=== PATIENT | female | born 1945 | race Caucasian/White ===

== ENCOUNTER 2017-12-15 10:10 | Inpatient (IN) | payer MEDICARE ==
[~2017-12-15] VITALS: Ht 154.9 cm; Wt 45.4 kg
[~2017-12-15 10:10] MED LIST: ASPIR 8181 MG PO; CALCIUM + VITA1 EACH PO; CALCIUM 600 +1 EAC4 PO; CLONAZEPAM1 MG PO; COMBIVENT RESPIM4 GM IH; DOXEPIN HCL25 MG PO; FLAGYL250 MG PO; GENERLAC10 GM/15 M PO; KEPPRA500 MG PO; LISINOPRIL10 MG PO; MAGNESIUM OXID400 MG PO; MONTELUKAST SOD10 MG PO; MULTI-VITAMIN1 EACH PO; VITAMIN C100 MG PO; VITAMIN E400 UNI2 PO; ZEBETA10 MG PO
--- NOTE | 2017-12-15 12:02 | Diagnostic Imaging Report ---
PROCEDURE: A single AP view of the chest. COMPARISON: Patients [facility], DX, CHEST SINGLE (PORTABLE), 03/12/2017, 8:49. Patients [facility], CT, CT ABDOMEN/PELVIS WO, 03/12/2017, 9:56. INDICATIONS: DIZZY, WEAKNESS FINDINGS: Lines/tubes: None. Lungs: Lungs are well inflated. Interval increase in size of right infrahilar 5.3 x 5.0 cm mass (previously measured 3.7 x 4.1 cm). There is increased prominence of the interstitial markings extending from bilateral florentino. No consolidation. Pleura: There is no pleural effusion or pneumothorax. Heart and mediastinum: Cardiac silhouette is unremarkable. Prominence of bilateral pulmonary arteries. Bones: No acute bony abnormality. Stable deformity of the left ninth rib, likely reflecting old healed fracture IMPRESSION: 1. interval increase in size in previously visualized right infrahilar mass, suspicious for bronchogenic neoplasm and/or adenopathy. Contrast enhanced chest CT is recommended for further evaluation. 2. Increased prominence of interstitial markings extending from bilateral florentino may reflect mild interstitial edema, however, lymphangitic spread of neoplasm is also a consideration. Van Valencia M.D. Dictated by: Van Valencia M.D. on 12/15/2017 at 12:02 Electronically approved by: Van Valencia M.D. on 12/15/2017 at 12:02
--- NOTE | 2017-12-15 13:07 | Diagnostic Imaging Report ---
Exam: Head CT without contrast History: Dizziness, multiple falls Comparison studies: None Technique: Axial images were obtained from the skull base to the vertex. Coronal and sagittal images reconstructed from the axial data. Intravenous contrast: None Findings: Scalp: No abnormalities. Bones: No fractures, blastic or lytic lesions. Brain sulci: Mildly prominent. Ventricles: Within normal limits for size. No hydrocephalus. Extra-axial spaces: No masses, no fluid collection. Parenchyma: No mass, acute hemorrhage or acute cortical vascular insults. A few subtle hypodensities in the supratentorial white matter are nonspecific but most compatible with chronic small vessel ischemic changes. There is a chronic cortical based insult with encephalomalacia in the left precentral gyrus just medial to the hand knob. Sellar/suprasellar region: No abnormalities. Craniocervical junction: Patent foramen magnum. No Chiari one malformation. Included paranasal sinuses: Mild nonspecific inflammatory mucosal thickening with frothy secretions in the bilateral maxillary sinuses. The left inferior frontal sinus is partially opacified. Incidental findings: Atherosclerotic calcifications in the carotid siphons. Bilateral lens replacements related to previous cataract surgery. IMPRESSION: No acute intracranial abnormalities. Chronic findings: 1. Mild generalized volume loss. 2. Small chronic left precentral cortical insult. 3. Mild supratentorial chronic microvascular ischemic changes. Signed by: Dr. Eric Ayala M.D. on 12/15/2017 12:00 PM
[2017-12-15 13:14] LABS: BASOPHILS % 0.2 % (0.0-1.0); BILIRUBIN,URINE NEGATIVE (NEGATIVE); HEMATOCRIT 32.8 % (34.2-44.1); HEMOGLOBIN 10.9 g/dL (12.0-16.0); KETONES,URINE NEGATIVE (NEGATIVE); LEUKOCYTE ESTERASE ,URINE NEGATIVE (NEGATIVE); LYMPHOCYTES # (AUTO) 1.5 (1.0-3.2); LYMPHOCYTES % 11.6 % (18.0-39.1); MEAN CORPUSCULAR HEMOGLOBIN 33.2 pg (28-32); MEAN CORPUSCULAR HGB CONC 33.2 g/dL (31-35); MONOCYTES % 7.9 % (4.4-11.3); NEUTROPHILS # (AUTO) 10.1 (2.1-6.9); NEUTROPHILS % 79.7 % (38.7-80.0); NITRITE,URINE NEGATIVE (NEGATIVE); PLATELET COUNT 170 x10e3/uL (140-360); RED BLOOD COUNT 3.28 x10e6/uL (3.6-5.1); RED CELL DISTRIBUTION WIDTH 11.7 % (11.7-14.4); URINE UROBILINOGEN 0.2 mg/dL (0.2 - 1)
[2017-12-15 13:17] LABS: CLARITY,URINE CLEAR (CLEAR); COLOR,URINE YELLOW (YELLOW); PROTEIN,URINE DIPSTICK 1+ (NEGATIVE)
[2017-12-15 13:22] LABS: BACTERIA,URINE RARE /HPF; EPITHELIAL CELLS,URINE FEW /LPF; WBC,URINE (MAN) 0-5 /HPF (0-5)
[2017-12-15 13:24] LABS: INR 1.2; PROTHROMBIN TIME 14.3 seconds (11.9-14.5)
[2017-12-15 13:25] LABS: PARTIAL THROMBOPLASTIN TIME 34.3 seconds (23.8-35.5)
[2017-12-15 13:33] LABS: ALBUMIN 2.7 g/dL (3.5-5.0); ALBUMIN/GLOBULIN RATIO 0.8 (0.8-2.0); ANION GAP 13.7 mmol/L (8-16); CALCIUM 9.1 mg/dL (8.4-10.2); CREATININE, SERUM 1.19 mg/dL (0.57-1.11); MAGNESIUM 1.3 MG/DL (1.3-2.1); POTASSIUM 3.7 mmol/L (3.5-5.1)
[2017-12-15 13:39] LABS: CREATINE KINASE MB 1.3 ng/mL (0-5.0)
[2017-12-15] MEDS ORDERED: ONDANSETRON HCL INJ 2 MG/ML VIAL IV STA (15:26)
[2017-12-15] MEDS ORDERED: SODIUM CHLORIDE 0.9% 1000ML 1,000 ML IV SCH (15:30)
[2017-12-15] MEDS: SODIUM CHLORIDE 0.9% 1000ML 1,000 ML IV SCH (16:49)
[2017-12-15] MEDS ORDERED: MECLIZINE HCL 12.5 MG TAB PO PRN (17:15)
[2017-12-15] MEDS ORDERED: ONDANSETRON HCL INJ 2 MG/ML VIAL IV PRN (17:15)
[2017-12-15] MEDS ORDERED: HYDROCODONE/APAP 5MG-325MG TAB PO ONE (17:30)
--- OUTSIDE RECORDS SUMMARY | 2017-12-15 17:37 | XMS REPORT ---
Author Author [facility] Address Unknown Phone Unavailable Care Team Providers Care Welfare Eligibility Worker Name Role Phone STU HOWE Unavailable Unavailable Problems This patient has no known problems. Allergies, Adverse Reactions, Alerts This patient has no known allergies or adverse reactions. Medications This patient has no known medications. Results Test Description Test Time Test Comments Text Results Atomic Results Result Comments CHEST SINGLE (PORTABLE) [place] [address] Patient Name: BESSIE WILSON MR #: [id number] : 1945 Age/Sex: 72/F Req #: [id number] Adm Physician: Ordered by: KHURRAM ALCAZAR [employer] Report #: [id number] Location: ER Room/Bed: Procedure: [id number] DX/CHEST SINGLE (PORTABLE) Exam Date: 12/15/17 Exam Time: 1130 REPORT STATUS: Signed PROCEDURE: A single AP view of the chest. COMPARISON: [facility], DX, CHEST SINGLE (PORTABLE), 03/12/2017, 8:49. Patients [facility], CT, CT ABDOMEN/PELVIS WO, 03/12/2017, 9:56. INDICATIONS: DIZZY, WEAKNESS FINDINGS: Lines/tubes: None. Lungs: Lungs are well inflated. Interval increase in size of right infrahilar 5.3 x 5.0 cm mass (previously measured 3.7 x 4.1 cm). There is increased prominence of the interstitial markings extending from bilateral florentino. No consolidation. Pleura: There is no pleural effusion or pneumothorax. Heart and mediastinum: Cardiac silhouette is unremarkable. Prominence of bilateral pulmonary arteries. Bones: No acute bony abnormality. Stable deformity of the left ninth rib, likely reflecting old healed fracture IMPRESSION: 1. interval increase in size in previously visualized right infrahilar mass, suspicious for bronchogenic neoplasm and/or adenopathy. Contrast enhanced chest CT is recommended for further evaluation. 2. Increased prominence of interstitial markings extending from bilateral florentino may reflect mild interstitial edema, however, lymphangitic spread of neoplasm is also a consideration. Abhi Valencia M.D. Dictated by: Abhi Valencia M.D. on 12/15/2017 at 12:02 Electronically approved by: Abhi Valencia M.D. on 12/15/2017 at 12:02 Dictated By: ABHI VALENCIA MD 1202 Transcribed By: WOLFGANG on 12/15/17 1202 COPY TO: KHURRAM ALCAZAR NP CT BRAIN WO [place] [address] Patient Name: BESSIE WILSON MR #: [id number] : 1945 Age/Sex: 72/F Req # : [id number] Adm Physician: Ordered by: KHURRAM ALCAZAR NP Report #: [id number] Location: ER Room/Bed: Procedure: [id number] CT/CT BRAIN WO Exam Date: 12/15/17 Exam Time: 1125 REPORT STATUS: Signed Exam: Head CT without contrast History: Dizziness, multiple falls Comparison studies: None Technique: Axial images were obtained from the skull base to the vertex. Coronal and sagittal images reconstructed from the axial data. Intravenous contrast: None Findings: Scalp: No abnormalities. Bones: No fractures, blastic or lytic lesions. Brain sulci: Mildly prominent. Ventricles: Within normal limits for size. No hydrocephalus. Extra-axial spaces: No masses, no fluid collection. Parenchyma: No mass, acute hemorrhage or acute cortical vascular insults. A few subtle hypodensities in the supratentorial white matter are nonspecific but most compatible with chronic small vessel ischemic changes. There is a chronic cortical based insult with encephalomalacia in the left precentral gyrus just medial to the hand knob. Sellar/ suprasellar region: No abnormalities. Craniocervical junction: Patent foramen magnum. No Chiari one malformation. Included paranasal sinuses: Mild nonspecific inflammatory mucosal thickening with frothy secretions in the bilateral maxillary sinuses. The left inferior frontal sinus is partially opacified. Incidental findings: Atherosclerotic calcifications in the carotid siphons. Bilateral lens replacements related to previous cataract surgery. IMPRESSION: No acute intracranial abnormalities. Chronic findings: 1. Mild generalized volume loss. 2. Small chronic left precentral cortical insult. 3. Mild supratentorial chronic microvascular ischemic changes. Signed by: Dr. Randa Ayala M.D. on 12/15/2017 12:00 PM Dictated By: RANDA AYALA MD 1200 Transcribed By: CLARIBEL on 12/15/17 1200 COPY TO: KHURRAM ALCAZAR NP
[2017-12-15 20:22] VITALS: BP 105/59
[2017-12-15 21:03] VITALS: BP 105/59
[2017-12-15 21:45] LABS: ABG PCO2 59 mmHg (41-51); ABG PH 7.38 (7.31-7.41); ABG PO2 60 mmHg (80-105)
[2017-12-15 21:46] LABS: ABG HCO3 35 mmol/L (23-28)
[2017-12-15 23:57] VITALS: BP 115/58
[2017-12-16] VITALS (22 sets, daily range): BP systolic 112–144; BP diastolic 58–134
[2017-12-16] MEDS: NICOTINE 14 MG/EA PATCH TOP SCH ×2 (01:02→08:31)
[2017-12-16] MEDS: SODIUM CHLORIDE 0.9% 1000ML 1,000 ML IV SCH ×2 (06:05→19:25)
[2017-12-16 06:52] LABS: BASOPHILS % 0.2 % (0.0-1.0); EOSINOPHILS % 0.1 % (0.0-6.0); HEMATOCRIT 33.6 % (34.2-44.1); HEMOGLOBIN 10.5 g/dL (12.0-16.0); LYMPHOCYTES # (AUTO) 1.4 (1.0-3.2); LYMPHOCYTES % 8.5 % (18.0-39.1); MEAN CORPUSCULAR HEMOGLOBIN 32.3 pg (28-32); MEAN CORPUSCULAR HGB CONC 31.3 g/dL (31-35); MEAN CORPUSCULAR VOLUME 103.4 fL (81-99); MONOCYTES # (AUTO) 1.4 (0.2-0.8); MONOCYTES % 8.7 % (4.4-11.3); NEUTROPHILS # (AUTO) 13.4 (2.1-6.9); NEUTROPHILS % 81.7 % (38.7-80.0); PLATELET COUNT 172 x10e3/uL (140-360); RED BLOOD COUNT 3.25 x10e6/uL (3.6-5.1); RED CELL DISTRIBUTION WIDTH 11.8 % (11.7-14.4)
[2017-12-16 07:15] LABS: ANION GAP 13.3 mmol/L (8-16); BLOOD UREA NITROGEN 12 mg/dL (7-26); BUN/CREATININE RATIO 16 (6-25); CALCIUM 9.1 mg/dL (8.4-10.2); CARBON DIOXIDE 33 mmol/L (22-29); CHLORIDE 94 mmol/L (98-107); CREATININE, SERUM 0.73 mg/dL (0.57-1.11); EST GLOMERULAR FILTRATION RATE > 60 ML/MIN (60-); GLUCOSE 89 mg/dL (74-118); POTASSIUM 4.3 mmol/L (3.5-5.1); SODIUM 136 mmol/L (136-145)
[2017-12-16] MEDS: LEVETIRACETAM 500 MG TAB PO SCH (08:30)
[2017-12-16] MEDS: CLONAZEPAM 1 MG TAB PO SCH ×2 (08:30→17:58)
[2017-12-16] MEDS: ASPIRIN 81 MG CHEW TAB PO SCH (08:30)
[2017-12-16] MEDS: MAGNESIUM OXIDE 400 MG TAB PO SCH (08:31)
[2017-12-16] MEDS: MULTIVITAMINS/MINERALS TAB PO SCH (08:31)
[2017-12-16] MEDS: LORAZEPAM INJ 2 MG/ML VIAL IV PRN (11:56)
[2017-12-16 13:22] LABS: ABG HCO3 35 mmol/L (23-28); ABG PCO2 52 mmHg (41-51); ABG PH 7.44 (7.31-7.41); ABG PO2 65 mmHg (80-105)
[2017-12-16] MEDS ORDERED: DIPHENHYDRAMINE HCL INJ 50 MG/ML VIAL IV STA (13:26)
[2017-12-16] MEDS: BISOPROLOL FUMARATE 10 MG TAB PO SCH (13:46)
[2017-12-16] MEDS ORDERED: SODIUM CHLORIDE 0.9% 50ML 50 ML ONE (15:01)
[2017-12-16] MEDS ORDERED: IOPAMIDOL 370 MG/ML 200 ML INFUS..BTL INJ ONE (15:02)
--- NOTE | 2017-12-16 15:46 | Diagnostic Imaging Report ---
PROCEDURE: CT scan of the chest WITH intravenous contrast, using standard protocol. TECHNIQUE: The chest was scanned utilizing a multidetector helical scanner from the lung apex through the level of the adrenal glands after the IV administration of 100 cc of Isovue 370. Coronal and sagittal multiplanar reformations were obtained. Total DLP: 363.82 mGy-cm COMPARISON: Chest x-ray 12/15/2017. CT abdomen and pelvis 03/12/17 INDICATIONS: LUNG MASS, AMS, CONFUSSION FINDINGS: Lines/tubes: None. Lungs and Airways: Severe centrilobular emphysematous changes. Diffuse interlobular septal thickening, consistent with mild fluid overload. Focal consolidations in the anterior medial right middle lobe and lingula. Consolidation in the dependent portions of the left lower lobe and medial aspect of the right lower lobe. Mild ill-defined groundglass opacities in the right upper lobe. Collapsed right middle lobe measuring 4.0 x 5.4 cm, which corresponds with findings on chest x-ray. (Series 3 image 71) 3.8 mm nodule in the lingula (series 4 image 65). Calcified granuloma in the right lower lobe. Diffuse bronchial wall thickening especially in both lower lobes. Pleura: The pleural spaces are clear. Heart and mediastinum: The thyroid gland is normal. No significant axillary lymphadenopathy is seen. 0.7 cm short axis prevascular lymph node (series 3 image 40). 1.1 cm precarinal lymph node (series 3 image 51). 1.1 cm right hilar lymph node (series 3 image 57) Small left hilar lymph nodes. The heart and pericardium are within normal limits. Main pulmonary artery measures 3.4 cm in the ascending aorta measures 3.3 cm. Right pulmonary artery measures 3.2 cm and the left pulmonary artery measures 3.0 cm. Straightening of the interventricular septum with mild deviation towards the left. Soft tissues: Normal. Abdomen: Calcifications in the 1.6 cm focal fatty infiltration of the liver adjacent to falciform ligament. Main pancreatic duct is dilated and measures 0.5 cm with a pancreatic divisum variant exiting both the minor and major papilla. 0.6 cm cyst in the lower pole of left kidney. Severe atherosclerotic calcifications in the aorta. Diffuse gastric wall thickening especially the antrum. Mild anterior compression deformity of L1 vertebral body. IMPRESSION: 1. Emphysema with mild edema. 2. Multifocal pneumonia/aspiration. 3. Previous mass seen corresponds with a collapsed right middle lobe. 4. Multiple small mediastinal lymph node, likely related to pneumonia. 5. Diffuse gastric wall thickening especially involving the antrum, correlate for gastritis. Recommend endoscopy for further evaluation. 6. Prominent pancreatic duct, which may be related to pancreatic divisum variant. 7. Main pulmonary artery is enlarged, which can be seen in elevated right pressure. Dictated by: Harvey Nunze M.D. on 12/16/2017 at 15:47 Electronically approved by: Harvey Nunez M.D. on 12/16/2017 at 15:47
[2017-12-16] MEDS ORDERED: ZIPRASIDONE 20 MG VIAL IM PRN (16:00)
[2017-12-16] MEDS: LEVALBUTEROL HCL SOLN NEBU 1.25 MG/3 ML NEB INH SCH ×2 (16:30→19:00)
[2017-12-16] MEDS ORDERED: DEXMEDETOMIDINE HCL 200 MCG in SODIUM CHLORIDE 0.9% 50ML 48 ML IV PRN (16:30)
--- NOTE | 2017-12-16 17:04 | Consultation ---
DATE OF CONSULTATION: PULMONARY CONSULTATION REASON FOR CONSULTATION: Shortness of breath and lung mass. HPI: Ms. Conte is a 72-year-old female, a [id number] smoker, who presented with worsening shortness of breath, cough and intentional weight loss. She is currently confused. When I was taking her history, she was awake and alert. She is hypoxic as well. She denies any nausea, vomiting, or diarrhea. Her CT showed evidence of emphysema and possible pneumonia and lymph nodes. It is not showing any clear-cut mass. REVIEW OF SYSTEMS GENERAL: Denies any fever or chills. HEAD: Denies any head trauma. ENT: Denies any earache, nosebleed, throat pain. CVS: Denies any chest pain. RESPIRATORY: Shortness of breath. OTHER: The rest of the review systems are negative except as in HPI. PAST MEDICAL HISTORY: Seizure disorder, anxiety, COPD. PAST SURGICAL HISTORY: Unknown. FAMILY AND SOCIAL HISTORY: Smoker for 55+ years, 1 pack per day. Denies any alcohol use. PHYSICAL EXAMINATION VITAL SIGNS: Temperature 96.6. Pulse 100. Blood pressure 139/63. Respiratory rate is 20 to 24 per minute, 95% on Venturi mask. HEENT: Head is atraumatic and normocephalic. Pupils are reactive. NECK: Supple. CHEST: Markedly reduced air entry. HEART: S1, S2 audible. ABDOMEN: Soft, nontender and nondistended. EXTREMITIES: No clubbing, cyanosis or edema. NEUROLOGIC: Awake and alert. LABS: ABG showing pH of 7.44, pCO2 52, pO2 65, O2 sat 93%. Chemistry: Sodium 132, potassium 4.3, chloride 94, BUN 12, creatinine 0.7. White count 16,000, hemoglobin 10.5, platelets 172. CT of the chest: I reviewed the images. Showing right middle lobe looks collapsed, atelectasis and emphysema. There are small mediastinal lymph nodes. The findings are consistent with pneumonia. ASSESSMENT AND PLAN 1. Pneumonia with right middle lobe atelectasis. 2. Altered mental status and psychosis. 3. Hypertension. 4. Chronic obstructive pulmonary disease. PLAN 1. I will start the patient on IV antibiotics. 2. IV Solu-Medrol. 3. Continue the patient on Keppra. 4. Observe in ICU. Start the patient on IV Precedex. 5. Possibly anxiety. Detailed discussion was done with Dr. Arias and also discussed with family at bedside. Job#: [id number]
[2017-12-16] MEDS: METHYLPREDNISOLONE SOD SUCC 40 MG/ML VIAL IV SCH ×2 (17:58→22:30)
[2017-12-16] MEDS: PIPER-TAZ 3.375 GM 50 ML IV SCH ×2 (17:58→22:30)
[2017-12-16] MEDS: BUDESONIDE 0.5MG/2 ML NEB INH SCH (19:00)
[2017-12-16] MEDS: DEXMEDETOMIDINE HCL 200 MCG in SODIUM CHLORIDE 0.9% 50ML 48 ML IV PRN (21:40)
[2017-12-16] MEDS: DOXEPIN HCL 25 MG CAP PO SCH (22:30)
[2017-12-16] MEDS: MONTELUKAST SODIUM 10 MG TAB PO SCH (22:30)
[2017-12-17] VITALS (91 sets, daily range): BP systolic 84–167; BP diastolic 34–126
[2017-12-17] MEDS: LORAZEPAM INJ 2 MG/ML VIAL IV PRN (00:06)
[2017-12-17] MEDS: LEVALBUTEROL HCL SOLN NEBU 1.25 MG/3 ML NEB INH SCH ×4 (01:00→20:15)
[2017-12-17] MEDS ORDERED: LORAZEPAM INJ 2 MG/ML VIAL IV PRN (03:15)
[2017-12-17] MEDS: METHYLPREDNISOLONE SOD SUCC 40 MG/ML VIAL IV SCH ×3 (06:23→21:41)
[2017-12-17] MEDS: PIPER-TAZ 3.375 GM 50 ML IV SCH ×3 (06:23→21:41)
[2017-12-17 06:57] LABS: BASOPHILS % 0.1 % (0.0-1.0); HEMOGLOBIN 9.8 g/dL (12.0-16.0); LYMPHOCYTES # (AUTO) 0.6 (1.0-3.2); LYMPHOCYTES % 7.1 % (18.0-39.1); MEAN CORPUSCULAR HEMOGLOBIN 32.6 pg (28-32); MEAN CORPUSCULAR HGB CONC 31.6 g/dL (31-35); MONOCYTES # (AUTO) 0.1 (0.2-0.8); MONOCYTES % 1.5 % (4.4-11.3); NEUTROPHILS # (AUTO) 7.8 (2.1-6.9); NEUTROPHILS % 90.7 % (38.7-80.0); PLATELET COUNT 186 x10e3/uL (140-360); RED BLOOD COUNT 3.01 x10e6/uL (3.6-5.1); RED CELL DISTRIBUTION WIDTH 11.9 % (11.7-14.4)
[2017-12-17 07:22] LABS: ALANINE AMINOTRANSFERASE 10 IU/L (0-55); ALBUMIN 2.4 g/dL (3.5-5.0); ALBUMIN/GLOBULIN RATIO 0.8 (0.8-2.0); ALKALINE PHOSPHATASE 64 IU/L (40-150); ANION GAP 15.1 mmol/L (8-16); BLOOD UREA NITROGEN 9 mg/dL (7-26); BUN/CREATININE RATIO 14 (6-25); CALCIUM 8.7 mg/dL (8.4-10.2); CARBON DIOXIDE 31 mmol/L (22-29); CHLORIDE 101 mmol/L (98-107); CREATININE, SERUM 0.66 mg/dL (0.57-1.11); EST GLOMERULAR FILTRATION RATE > 60 ML/MIN (60-); GLUCOSE 110 mg/dL (74-118); POTASSIUM 4.1 mmol/L (3.5-5.1); SODIUM 143 mmol/L (136-145)
[2017-12-17] MEDS: BUDESONIDE 0.5MG/2 ML NEB INH SCH ×2 (07:30→20:15)
[2017-12-17] MEDS: NICOTINE 14 MG/EA PATCH TOP SCH (09:00)
[2017-12-17] MEDS: BISOPROLOL FUMARATE 10 MG TAB PO SCH (09:30)
[2017-12-17] MEDS: SODIUM CHLORIDE 0.9% 1000ML 1,000 ML IV SCH ×2 (09:30→22:05)
[2017-12-17] MEDS: MAGNESIUM OXIDE 400 MG TAB PO SCH (09:30)
[2017-12-17] MEDS: ASPIRIN 81 MG CHEW TAB PO SCH (09:30)
[2017-12-17] MEDS: LEVETIRACETAM 500 MG TAB PO SCH (09:30)
[2017-12-17] MEDS: MULTIVITAMINS/MINERALS TAB PO SCH (09:30)
[2017-12-17] MEDS: CLONAZEPAM 1 MG TAB PO SCH ×2 (09:30→17:00)
[2017-12-17] MEDS ORDERED: HALOPERIDOL LACTATE 5 MG/ML VIAL IM PRN (10:00)
[2017-12-17] MEDS ORDERED: QUETIAPINE FUMARATE 25 MG TAB PO PRN (10:00)
--- NOTE | 2017-12-17 17:24 | Consultation ---
DATE OF CONSULTATION: December 17, 2017 PSYCHIATRIC CONSULTATION REASON FOR CONSULTATION: To evaluate patient's psychosis. HISTORY OF PRESENTING ILLNESS: The patient is a 72-year-old female admitted to the hospital for dizziness and recurrent falls. Psychiatric consultation is called to evaluate the patient's psychosis. As per the medical record, patient has history of seizure, anxiety and COPD. Upon evaluation today, patient is found to be in the ICU. She is with a one-to-one. Her family member is in the room. Patient is alert, awake and oriented to self only. She recognized family members but does not now where she is or the current year. She is restless, fidgeting, trying to pull off her pulse ox. Patient is unable to answer questions appropriately. She is very confused. She is unable to answer any other questions due to confusion. Collaborative report from patient's and granddaughter who report that patient was doing well on Thursday; however, she fell at home and her oxygen was low. She was taken to the hospital. Since then she has been very confused. They also report that has been confused in the past when she is admitted to the hospital. PAST PSYCHIATRIC HISTORY: Patient reports history of anxiety. She denies past suicide attempt. She denies alcohol or drug use. FAMILY HISTORY: Unknown. SOCIAL HISTORY: Patient lives with her . MENTAL STATUS EXAMINATION: The patient is an elderly female. She is alert, awake and oriented to self. She is very confused and restless. She has not been interacting with external stimuli. Her insight and judgment are poor. Memory is impaired. She is unable to report if she is having any suicidal thoughts or homicidal thoughts. Affect is congruent with mood. Her mood is anxious. Thought process is loose. She does not elicit paranoia or delusional thinking. Current medications include 1. Budesonide. 2. Levalbuterol. 3. Zosyn. 4. Methylprednisolone. 5. Ativan 1 mg IV q.4 h. p.r.n. 6. Singulair. 7. Doxepin. 8. Klonopin 1 mg p.o. b.i.d. 9. Bisoprolol. 10. Multivitamins. 11. Magnesium oxide. 12. Nicotine. 13. Keppra. 14. Aspirin. 15. Sodium chloride. 16. Antivert. 17. Zofran. LABS: WBC is 8.64, RBC 3.01, hemoglobin 9.8, hematocrit 31.0, platelet is 186. Sodium 143, potassium 4.1, chloride 101, BUN 9, CO2 31. ASSESSMENT: Unspecified psychosis/delirium, multifactorial. Rule out dementia. PLAN 1. To cover as per medical. 2. Continue Ativan 1 mg IV q.4 h. p.r.n. 3. Continue doxepin. 4. Continue Klonopin 1 mg p.o. b.i.d. 5. Add Seroquel 25 mg p.o. q.6 h. p.r.n. 6. Add Haldol 2 mg IM q.6 h. p.r.n. 7. Monitor for agitation. 8. Discuss with nursing staff. Thank you for this consultation. Dictated by: HOLDEN Méndez Job#: [id number]
--- NOTE | 2017-12-17 21:38 | Diagnostic Imaging Report ---
EXAM: CHEST XRAY LINE PLACEMENT, AP 1 view INDICATION: Line placement COMPARISON: AP view of the chest December 15, 2017 FINDINGS: LINES/TUBES: Interval placement of right approach PICC that terminates at the expected location of the distal superior vena cava. LUNGS: Stable appearance of the right hilar mass given differences in projection. Stable nodular density projects over the right mid lung and right lung base. PLEURA: No effusions or pneumothorax. HEART AND MEDIASTINUM: The heart is within normal size limits. Enlargement of the mediastinum suggests lymphadenopathy. BONES AND SOFT TISSUES: No acute findings. IMPRESSION: The right approach PICC terminates at the expected location of the distal superior vena cava. Signed by: Dr. Liana Reyes M.D. on 12/17/2017 9:34 PM
[2017-12-17] MEDS: DOXEPIN HCL 25 MG CAP PO SCH (21:41)
[2017-12-17] MEDS: MONTELUKAST SODIUM 10 MG TAB PO SCH (21:41)
[2017-12-17] MEDS: CLONAZEPAM 0.5 MG TAB PO SCH (21:41)
[2017-12-17] MEDS: DEXMEDETOMIDINE HCL 200 MCG in SODIUM CHLORIDE 0.9% 50ML 48 ML IV PRN (21:42)
[2017-12-18] VITALS (40 sets, daily range): BP systolic 95–169; BP diastolic 50–118
[2017-12-18] MEDS: LEVALBUTEROL HCL SOLN NEBU 1.25 MG/3 ML NEB INH SCH ×4 (00:30→20:00)
[2017-12-18] MEDS ORDERED: ALTEPLASE RECOMBINANT 2 MG/2 ML VIAL IV PRN (05:30)
[2017-12-18 06:00] LABS: BASOPHILS % 0.1 % (0.0-1.0); HEMATOCRIT 27.2 % (34.2-44.1); HEMOGLOBIN 8.6 g/dL (12.0-16.0); LYMPHOCYTES # (AUTO) 1.1 (1.0-3.2); LYMPHOCYTES % 7.5 % (18.0-39.1); MEAN CORPUSCULAR HEMOGLOBIN 32.6 pg (28-32); MEAN CORPUSCULAR HGB CONC 31.6 g/dL (31-35); MONOCYTES # (AUTO) 0.8 (0.2-0.8); MONOCYTES % 5.6 % (4.4-11.3); NEUTROPHILS # (AUTO) 12.4 (2.1-6.9); NEUTROPHILS % 86.3 % (38.7-80.0); PLATELET COUNT 230 x10e3/uL (140-360); RED BLOOD COUNT 2.64 x10e6/uL (3.6-5.1)
[2017-12-18 06:30] LABS: ALANINE AMINOTRANSFERASE 12 IU/L (0-55); ALBUMIN 2.2 g/dL (3.5-5.0); ALBUMIN/GLOBULIN RATIO 0.8 (0.8-2.0); ALKALINE PHOSPHATASE 55 IU/L (40-150); ANION GAP 10.7 mmol/L (8-16); BLOOD UREA NITROGEN 13 mg/dL (7-26); BUN/CREATININE RATIO 22 (6-25); CALCIUM 8.1 mg/dL (8.4-10.2); CARBON DIOXIDE 33 mmol/L (22-29); CHLORIDE 105 mmol/L (98-107); EST GLOMERULAR FILTRATION RATE > 60 ML/MIN (60-); GLUCOSE 101 mg/dL (74-118); POTASSIUM 3.7 mmol/L (3.5-5.1); SODIUM 145 mmol/L (136-145)
[2017-12-18] MEDS: METHYLPREDNISOLONE SOD SUCC 40 MG/ML VIAL IV SCH ×2 (06:32→16:00)
[2017-12-18] MEDS: PIPER-TAZ 3.375 GM 50 ML IV SCH ×3 (06:32→21:47)
[2017-12-18] MEDS: BUDESONIDE 0.5MG/2 ML NEB INH SCH ×2 (08:33→20:00)
[2017-12-18] MEDS: LEVETIRACETAM 500 MG TAB PO SCH (09:44)
[2017-12-18] MEDS: MAGNESIUM OXIDE 400 MG TAB PO SCH (09:44)
[2017-12-18] MEDS: ASPIRIN 81 MG CHEW TAB PO SCH (09:44)
[2017-12-18] MEDS: CLONAZEPAM 0.5 MG TAB PO SCH ×3 (09:44→20:10)
[2017-12-18] MEDS: NICOTINE 14 MG/EA PATCH TOP SCH (09:45)
[2017-12-18] MEDS: MULTIVITAMINS/MINERALS TAB PO SCH (10:49)
[2017-12-18] MEDS: BISOPROLOL FUMARATE 10 MG TAB PO SCH (12:04)
[2017-12-18] MEDS: BENZONATATE 100 MG CAP PO SCH ×2 (12:15→20:10)
[2017-12-18] MEDS: MONTELUKAST SODIUM 10 MG TAB PO SCH (20:10)
[2017-12-18] MEDS: DOXEPIN HCL 25 MG CAP PO SCH (20:10)
[2017-12-19] VITALS (10 sets, daily range): BP systolic 135–166; BP diastolic 58–70
[2017-12-19] MEDS: LEVALBUTEROL HCL SOLN NEBU 1.25 MG/3 ML NEB INH SCH ×4 (01:00→19:10)
[2017-12-19] MEDS: PIPER-TAZ 3.375 GM 50 ML IV SCH ×4 (05:18→16:49)
[2017-12-19 06:51] LABS: BASOPHILS % 0.1 % (0.0-1.0); HEMATOCRIT 30.1 % (34.2-44.1); HEMOGLOBIN 9.5 g/dL (12.0-16.0); LYMPHOCYTES # (AUTO) 1.7 (1.0-3.2); LYMPHOCYTES % 15.5 % (18.0-39.1); MEAN CORPUSCULAR HEMOGLOBIN 32.2 pg (28-32); MEAN CORPUSCULAR HGB CONC 31.6 g/dL (31-35); MONOCYTES # (AUTO) 0.9 (0.2-0.8); MONOCYTES % 8.1 % (4.4-11.3); NEUTROPHILS # (AUTO) 8.3 (2.1-6.9); NEUTROPHILS % 74.8 % (38.7-80.0); PLATELET COUNT 213 x10e3/uL (140-360); RED BLOOD COUNT 2.95 x10e6/uL (3.6-5.1); RED CELL DISTRIBUTION WIDTH 12.1 % (11.7-14.4)
[2017-12-19] MEDS: BUDESONIDE 0.5MG/2 ML NEB INH SCH ×3 (07:00→19:18)
[2017-12-19 07:09] LABS: ALANINE AMINOTRANSFERASE 12 IU/L (0-55); ALBUMIN 2.2 g/dL (3.5-5.0); ALBUMIN/GLOBULIN RATIO 0.8 (0.8-2.0); ALKALINE PHOSPHATASE 56 IU/L (40-150); ANION GAP 7.7 mmol/L (8-16); BLOOD UREA NITROGEN 12 mg/dL (7-26); BUN/CREATININE RATIO 19 (6-25); CALCIUM 8.8 mg/dL (8.4-10.2); CARBON DIOXIDE 37 mmol/L (22-29); CHLORIDE 102 mmol/L (98-107); CREATININE, SERUM 0.63 mg/dL (0.57-1.11); EST GLOMERULAR FILTRATION RATE > 60 ML/MIN (60-); GLUCOSE 89 mg/dL (74-118); POTASSIUM 3.7 mmol/L (3.5-5.1); SODIUM 143 mmol/L (136-145)
[2017-12-19] MEDS: METHYLPREDNISOLONE SOD SUCC 40 MG/ML VIAL IV SCH ×2 (09:03→16:48)
[2017-12-19] MEDS: MULTIVITAMINS/MINERALS TAB PO SCH (09:04)
[2017-12-19] MEDS: BENZONATATE 100 MG CAP PO SCH ×3 (09:04→20:11)
[2017-12-19] MEDS: CLONAZEPAM 0.5 MG TAB PO SCH ×3 (09:04→20:11)
[2017-12-19] MEDS: MAGNESIUM OXIDE 400 MG TAB PO SCH (09:04)
[2017-12-19] MEDS: ASPIRIN 81 MG CHEW TAB PO SCH (09:05)
[2017-12-19] MEDS: LEVETIRACETAM 500 MG TAB PO SCH (09:05)
[2017-12-19] MEDS: NICOTINE 14 MG/EA PATCH TOP SCH (09:06)
[2017-12-19] MEDS: BISOPROLOL FUMARATE 10 MG TAB PO SCH (09:39)
[2017-12-19] MEDS: SODIUM CHLORIDE FLUSH 10 ML SYR INJ PRN (17:00)
[2017-12-19] MEDS ORDERED: PIPER-TAZ 3.375 GM 50 ML IV SCH (17:00)
[2017-12-19] MEDS: DOXEPIN HCL 25 MG CAP PO SCH (20:11)
[2017-12-19] MEDS: MONTELUKAST SODIUM 10 MG TAB PO SCH (20:11)
[2017-12-20] VITALS (7 sets, daily range): BP systolic 109–161; BP diastolic 55–97
[2017-12-20] MEDS: PIPER-TAZ 3.375 GM 50 ML IV SCH ×3 (00:38→16:50)
[2017-12-20] MEDS: LEVALBUTEROL HCL SOLN NEBU 1.25 MG/3 ML NEB INH SCH ×4 (01:00→18:50)
[2017-12-20] MEDS ORDERED: MAGNESIUM SULFATE 2GM/50ML 50 ML IV ONE (06:15)
[2017-12-20] MEDS: BUDESONIDE 0.5MG/2 ML NEB INH SCH ×2 (07:12→18:50)
[2017-12-20] MEDS: NICOTINE 14 MG/EA PATCH TOP SCH (09:03)
[2017-12-20] MEDS: MULTIVITAMINS/MINERALS TAB PO SCH (09:03)
[2017-12-20] MEDS: ASPIRIN 81 MG CHEW TAB PO SCH (09:03)
[2017-12-20] MEDS: MAGNESIUM OXIDE 400 MG TAB PO SCH (09:03)
[2017-12-20] MEDS: CLONAZEPAM 0.5 MG TAB PO SCH ×3 (09:03→20:02)
[2017-12-20] MEDS: LEVETIRACETAM 500 MG TAB PO SCH (09:03)
[2017-12-20] MEDS: BENZONATATE 100 MG CAP PO SCH ×3 (09:03→20:02)
[2017-12-20] MEDS: METHYLPREDNISOLONE SOD SUCC 40 MG/ML VIAL IV SCH ×2 (09:03→16:50)
[2017-12-20] MEDS: BISOPROLOL FUMARATE 10 MG TAB PO SCH (09:04)
[2017-12-20] MEDS: MONTELUKAST SODIUM 10 MG TAB PO SCH (20:02)
[2017-12-20] MEDS: DOXEPIN HCL 25 MG CAP PO SCH (20:02)
[2017-12-21] VITALS (11 sets, daily range): BP systolic 144–166; BP diastolic 62–83
[2017-12-21] MEDS: PIPER-TAZ 3.375 GM 50 ML IV SCH ×3 (00:08→17:36)
[2017-12-21] MEDS: LEVALBUTEROL HCL SOLN NEBU 1.25 MG/3 ML NEB INH SCH ×4 (01:00→20:30)
[2017-12-21 06:52] LABS: BASOPHILS % 0.2 % (0.0-1.0); EOSINOPHILS # (AUTO) 0.1 (0.0-0.4); EOSINOPHILS % 0.7 % (0.0-6.0); HEMATOCRIT 30.4 % (34.2-44.1); HEMOGLOBIN 9.6 g/dL (12.0-16.0); LYMPHOCYTES # (AUTO) 2.4 (1.0-3.2); LYMPHOCYTES % 26.8 % (18.0-39.1); MEAN CORPUSCULAR HGB CONC 31.6 g/dL (31-35); MEAN CORPUSCULAR VOLUME 101.3 fL (81-99); MONOCYTES # (AUTO) 0.8 (0.2-0.8); MONOCYTES % 9.2 % (4.4-11.3); NEUTROPHILS # (AUTO) 5.6 (2.1-6.9); NEUTROPHILS % 61.2 % (38.7-80.0); PLATELET COUNT 244 x10e3/uL (140-360)
[2017-12-21] MEDS: BUDESONIDE 0.5MG/2 ML NEB INH SCH ×2 (07:45→20:30)
[2017-12-21 07:49] LABS: ALANINE AMINOTRANSFERASE 11 IU/L (0-55); ALBUMIN 2.4 g/dL (3.5-5.0); ALBUMIN/GLOBULIN RATIO 0.9 (0.8-2.0); ALKALINE PHOSPHATASE 51 IU/L (40-150); ANION GAP 10.4 mmol/L (8-16); BLOOD UREA NITROGEN 7 mg/dL (7-26); BUN/CREATININE RATIO 10 (6-25); CALCIUM 8.6 mg/dL (8.4-10.2); CARBON DIOXIDE 38 mmol/L (22-29); CHLORIDE 102 mmol/L (98-107); EST GLOMERULAR FILTRATION RATE > 60 ML/MIN (60-); GLUCOSE 74 mg/dL (74-118); POTASSIUM 3.4 mmol/L (3.5-5.1); SODIUM 147 mmol/L (136-145)
[2017-12-21] MEDS: METHYLPREDNISOLONE SOD SUCC 40 MG/ML VIAL IV SCH ×2 (09:08→17:35)
[2017-12-21] MEDS: ASPIRIN 81 MG CHEW TAB PO SCH (09:09)
[2017-12-21] MEDS: FLUCONAZOLE 100 MG TAB PO SCH (09:10)
[2017-12-21] MEDS: LEVETIRACETAM 500 MG TAB PO SCH (09:12)
[2017-12-21] MEDS: CLONAZEPAM 0.5 MG TAB PO SCH ×3 (09:13→20:13)
[2017-12-21] MEDS: MULTIVITAMINS/MINERALS TAB PO SCH (09:14)
[2017-12-21] MEDS: MAGNESIUM OXIDE 400 MG TAB PO SCH (09:14)
[2017-12-21] MEDS: BENZONATATE 100 MG CAP PO SCH ×3 (09:14→20:13)
[2017-12-21] MEDS: NICOTINE 14 MG/EA PATCH TOP SCH (09:16)
[2017-12-21] MEDS: BISOPROLOL FUMARATE 10 MG TAB PO SCH (09:16)
--- NOTE | 2017-12-21 16:59 | Progress Note ---
DATE: December 21, 2017 PSYCHIATRIC PROGRESS NOTE Patient evaluated and events noted. The patient was found to be in her room with her nearby. The patient is alert, awake, and oriented to situation. She is not in restraint. She is pleasant and calm and not confused or agitated. She knows where she is and the current year. She remembers the events that led up to her hospitalization. She denies depression. She denies anxiety. She denies any hallucinations. She has not received any p.r.n. IM medications since December 17, 2017. She is resuming medications and denies any side effects. ASSESSMENT: Unspecified psychosis/delirium, multifactorial, resolved; rule out dementia. PLAN 1. To continue with Klonopin 0.5 mg p.o. 3 times a day scheduled. 2. Continue doxepin. 3. Continue with p.r.n. Haldol, Seroquel and Ativan. 4. Supportive therapy. 5. At this point, the patient is cleared from psychiatry standpoint. Thank you for this consultation. Dictated by: HOLDEN Méndez Job#: [id number]
[2017-12-21] MEDS: DOXEPIN HCL 25 MG CAP PO SCH (20:13)
[2017-12-21] MEDS: MONTELUKAST SODIUM 10 MG TAB PO SCH (20:13)
[2017-12-22] MEDS: LEVALBUTEROL HCL SOLN NEBU 1.25 MG/3 ML NEB INH SCH ×3 (00:30→13:51)
[2017-12-22] MEDS: PIPER-TAZ 3.375 GM 50 ML IV SCH ×2 (00:50→09:15)
[2017-12-22 00:51] VITALS: BP 145/68
[2017-12-22 04:18] VITALS: BP 132/61
[2017-12-22] MEDS: BUDESONIDE 0.5MG/2 ML NEB INH SCH (06:30)
[2017-12-22] MEDS: ASPIRIN 81 MG CHEW TAB PO SCH (09:15)
[2017-12-22] MEDS: METHYLPREDNISOLONE SOD SUCC 40 MG/ML VIAL IV SCH (09:15)
[2017-12-22] MEDS: FLUCONAZOLE 100 MG TAB PO SCH (09:16)
[2017-12-22] MEDS: LEVETIRACETAM 500 MG TAB PO SCH (09:17)
[2017-12-22] MEDS: CLONAZEPAM 0.5 MG TAB PO SCH ×2 (09:18→15:16)
[2017-12-22] MEDS: BENZONATATE 100 MG CAP PO SCH ×2 (09:19→15:16)
[2017-12-22] MEDS: MULTIVITAMINS/MINERALS TAB PO SCH (09:19)
[2017-12-22] MEDS: MAGNESIUM OXIDE 400 MG TAB PO SCH (09:19)
[2017-12-22] MEDS: NICOTINE 14 MG/EA PATCH TOP SCH (09:19)
[2017-12-22] MEDS: BISOPROLOL FUMARATE 10 MG TAB PO SCH (09:33)
[2017-12-22 13:17] VITALS: BP 156/62
[2017-12-22 13:27] VITALS: BP 156/62
[2017-12-23] MEDS ORDERED: PREDNISONE 20 MG TAB PO SCH (09:00)
== END 2017-12-22 15:31 | disposition home or self-care (01) | DRG 871 ==
LOC: ER 10:10 → ERHOLD 17:35 → MED/SURG3 19:30 → ICU 12-16 19:38 → IMCU 12-18 13:04
PROVIDERS: ADMIT Internal Medicine; ATTEND Internal Medicine
PROC: 02HV33Z Insertion of Infusion Device into Superior Vena Cava, Percutaneous Approach (ICD-10-PCS; principal; 2017-12-17)
DX: A41.9 Sepsis, unspecified organism (principal); J18.9 Pneumonia, unspecified organism; J44.1 Chronic obstructive pulmonary disease with (acute) exacerbation; J45.901 Unspecified asthma with (acute) exacerbation; E87.1 Hypo-osmolality and hyponatremia; F05 Delirium due to known physiological condition; J98.11 Atelectasis; G40.909 Epilepsy, unspecified, not intractable, without status epilepticus; D64.9 Anemia, unspecified; F03.90 Unspecified dementia, unspecified severity, without behavioral disturbance, psychotic disturbance, mood disturbance, and anxiety; E86.0 Dehydration; Z72.0 Tobacco use; Z91.81 History of falling
CPT/HCPCS: 36415; 36569; 36600; 70450; 71045; 71260; 80048; 80053; 81001; 82550; 82553; 82805; 83735; 83880; 84484; 85025; 85610; 85730; 87070; 87116; 87205; 87206; 93005; 94640; 94660; 96365; 97139; 99285; J1200; J1630; J2060; J2543; J2920; J2997; J3486; J7030; Q9967

== ENCOUNTER → 2018-01-19 | Outpatient (CLI) | payer MEDICARE ==
[~2018-01-19] MED LIST changes: +IOPAMIDOL 370 MG/ML 200 ML INFUS..BTL INJ ONE; +SODIUM CHLORIDE 0.9% 0 ML ONE; +SODIUM CHLORIDE 0.9% 250ML 500 ML ONE; +SODIUM CHLORIDE 0.9% 50ML 50 ML ONE
[2018-01-19 07:31] LABS: CREATININE, SERUM 1.03 mg/dL (0.57-1.11)
--- NOTE | 2018-01-19 08:49 | Diagnostic Imaging Report ---
PROCEDURE: CT scan of the chest WITH intravenous contrast, using standard protocol. TECHNIQUE: The chest was scanned utilizing a multidetector helical scanner from the lung apex through the level of the adrenal glands after the IV administration of 100 cc of Isovue 370. Coronal and sagittal multiplanar reformations were obtained. DLP: 351.62 mGy-cm COMPARISON: 12/16/[address] INDICATIONS: LUNG MASS FINDINGS: Lines/tubes: None. Lungs and Airways: Again there are findings of severe emphysema. Ill-defined ground glass opacities in the right upper lobe have decreased in size and now appear to represent scarring. Improvement in the opacities in the left lung and right lower lobe. Again identified is partial collapse of the right middle lobe that is smaller compared to prior. Pleura: The pleural spaces are clear. Heart and mediastinum: The thyroid gland is normal. No significant mediastinal, hilar or axillary lymphadenopathy is seen. Decrease in size of the mediastinal lymph nodes. The heart and pericardium are within normal limits. Prominent pulmonary artery measures 3.4 cm. Soft tissues: Normal. Abdomen: Limited contrast-enhanced views of the upper abdomen show no abnormality within the visualized spleen, pancreas, or kidneys. Gastric wall thickening is unchanged. Focal fatty infiltration in the liver near the falciform ligament is unchanged. The adrenal glands are normal. Bones: Stable compression deformity of L1. IMPRESSION: 1. Changes of severe centrilobular emphysema. 2. Resolving multifocal pneumonia with a decrease in size of the mediastinal lymph nodes. 3. Apparent right pulmonary mass is membership sales representative of collapse of the right middle lobe which is smaller. 4. No change in the gastric wall thickening. Eitan Garcia D.O. Dictated by: Eitan Garcia D.O. on 01/19/2018 at 8:51 Electronically approved by: Eitan Garcia D.O. on 01/19/2018 at 8:51
== END ==
LOC: CT 06:38
PROVIDERS: ATTEND Internal Medicine
DX: R91.8 Other nonspecific abnormal finding of lung field (principal)
CPT/HCPCS: 36415; 71260; 82565; 84520; J7050; Q9967